=== PATIENT | male | born 1965 | race Caucasian/White ===

== ENCOUNTER → 2017-01-29 | Outpatient (CLI) | payer BC ==
[~2017-01-29] MED LIST: ALBUAER19 INH; LEVO25TA5 PO; MOME200A INH; ONDA4TAB7 SL; SILD1TAB11 PO
--- NOTE | 2017-01-29 16:12 | DIAGNOSTIC IMAGING REPORT ---
LEFT PELVIS UNI HIP 2-3 V CLINICAL HISTORY: LEFT HIP PAIN pain COMPARISON: None. DISCUSSION: Mild degenerative narrowing of the hip joint spaces bilaterally. No acute bony abnormality. No evidence for fracture or dislocation. No evidence for acetabular protrusion. There is no evidence for soft tissue swelling. IMPRESSION: Mild degenerative change of both hips. No acute process. Electronically signed by: Enoc Pradhan M.D. 01/29/2017 4:11 PM Dictated Date/Time: 01/29/2017 4:10 PM
== END | disposition home or self-care (01) ==
LOC: C.RDSM 01-28 15:59
PROVIDERS: ATTEND Family Medicine
DX: M25.552 Pain in left hip (principal)